=== PATIENT | female | born 1995 | race Caucasian/White ===

== ENCOUNTER 2023-11-05 11:16 | Outpatient (CLI) | payer OTHER, SELFPAY ==
--- NOTE | ~2023-11-05 | US_ITS ---
US breast LT limited 11/05/2023 11:41 Indication: Palpable left breast lump Procedure: High-resolution Limited ultrasound of the left breast Comparison: No prior studies for comparison. Findings: There is a cyst in the left breast at 3:00 near the nipple measuring 2.9 x 2.8 x 1.6 cm. Th ere is a soft tissue component along the anterior margin of the cyst with internal vascularity. This soft tissue component is not well delineated. No significant posterior features. Impression: 1: Irregular shaped vascular soft tissue along the anterior margin of the palpable cyst in the left b reast at 3:00 near the nipple. BI-RADS CATEGORY 4-SUSPICIOUS ABNORMALITY RECOMMENDATION: Ultrasound-guided biopsy of the soft tissue component recommended. Reviewed, dictated and finalized at location B. Impression: 1: Irregular shaped vascular soft tissue along the anterior margin of the palpa ble cyst in the left breast at 3:00 near the nipple. BI-RADS CATEGORY 4-SUSPICIOUS ABNORMALITY RECOMMENDATION: Ultrasound-guided biopsy of the soft tissue component recommend ed.
== END 2023-11-05 11:17 | disposition home or self-care (01) ==
PROVIDERS: Visit Provider Obstetrics & Gynecology
DX: N63.20 Unspecified lump in the left breast, unspecified quadrant (principal); R92.8 Other abnormal and inconclusive findings on diagnostic imaging of breast
CPT/HCPCS: 76642

== ENCOUNTER 2023-12-24 12:13 | Outpatient (CLI) | payer OTHER, SELFPAY ==
--- NOTE | ~2023-12-24 | MR_ITS ---
EXAMINATION: MR breast BI wo/w con INDICATION: Left breast lump TECHNIQUE: Axial VIBRANT pre and dynamic post contrast, Sagittal VIBRANT post contrast, Axial T2 STIR ASSET COMPARISON: Ultrasound dated 11/05/2023 CONTRAST: Multihance, 11 cc BREAST COMPOSITION: Extreme fibroglandular tissue FINDINGS: RIGHT BREAST: There is mild background parenchymal enhancement. No abnormal enhancement is present af ter contrast administration. No pathologically enlarged axillary or internal mammary lymph nodes are identified. LEFT BREAST: There is mild background parenchymal enhancement. There is a 2 cm nonenhancing cyst at t he central, slightly outer left breast, which correlates with the cyst seen on prior ultrasound. Harjit g the anterior margin of the cyst, there is an area of increased atypical enhancement, which also cor relates with the area of vascularity adjacent to the cyst seen on prior ultrasound. No pathologically enlarged axillary or internal mammary lymph nodes are identified. IMPRESSION: Findings which correlate with those seen on prior ultrasound. There is a 2 cm benign cyst at the chao tral to slightly outer left breast, an area of abnormal somewhat masslike enhancement along the anter ior margin of the cyst. This area of enhancement is indeterminate. As recommended on prior ultrasound report, biopsy of this region should be considered to establish a histologic diagnosis. BI-RADS category 4, suspicious findings. Reviewed, dictated and finalized at location M. IMPRESSION: Findings which correlate with those seen on prior ultrasound. There is a 2 cm benign cyst at the central to slightly outer left breast, an area of abnormal s omewhat masslike enhancement along the anterior margin of the cyst. This area o f enhancement is indeterminate. As recommended on prior ultrasound report, biop sy of this region should be considered to establish a histologic diagnosis. BI-RADS category 4, suspicious findings.
== END 2023-12-24 12:14 | disposition home or self-care (01) ==
LOC: ANHIMG 12:17
PROVIDERS: Visit Provider Surgery
DX: N63.25 Unspecified lump in the left breast, overlapping quadrants (principal); N60.02 Solitary cyst of left breast
CPT/HCPCS: 77049; A9577; C8908

== ENCOUNTER 2024-02-01 09:01 | Outpatient (CLI) | payer OTHER, SELFPAY ==
--- NOTE | ~2024-02-01 | US_ITS ---
EXAMINATION: US_BCALIMG_US DATE: 02/01/2024 18:46 CDT INDICATION: Painful left breast cyst TECHNIQUE: Survey imaging of the left breast was performed. The cyst at the 3:00 position was target ed for aspiration. The procedure and its risk and benefits were discussed with the patient. Risks in cluded but were not limited to pain, bleeding and infection. The patient verbalized understanding an d provided written consent. A time-out was performed to document the patient's name, date of , and site of procedure. The p eriareolar and medial quadrant of the patient's left breast was prepped and draped in usual sterile f ashion. 1% lidocaine was used for local anesthesia. Utilizing ultrasound guidance, a 20-gauge needl e was advanced into the well circumscribed anechoic avascular fluid collection with increased through transmission in the left breast. Aspiration was performed. Sample was sent for cytologic evaluation . Postaspiration images demonstrated the cyst to be completely decompressed. All devices were removed , and a sterile dressing applied. The patient tolerated procedure without immediate complication. FINDINGS: Technically successful aspiration of a (likely) cyst in the left breast at the 3:00 positio n. The fluid was thick, and light brown, and measured approximately 3-4 cc IMPRESSION: Technically successful aspiration of a fluid collection within the left breast, as detailed above. The patient will return on February 28 for ultrasound-guided percutaneous biopsy of the adjacent well -circumscribed solid focus within the left breast, adjacent to the cystic structure. Reviewed, dictated and finalized at location A. IMPRESSION: Technically successful aspiration of a fluid collection within the left breast, as detailed above. The patient will return on February 28 for ultrasound-guided percutaneous biops y of the adjacent well-circumscribed solid focus within the left breast, adjace nt to the cystic structure.
== END 2024-02-01 09:02 | disposition home or self-care (01) ==
PROVIDERS: Visit Provider Surgery
DX: N63.25 Unspecified lump in the left breast, overlapping quadrants (principal)
CPT/HCPCS: 19000; 76942; 87070; 87075; 87205

== ENCOUNTER 2024-02-29 09:07 | Outpatient (CLI) | payer OTHER, SELFPAY ==
--- NOTE | ~2024-02-29 | US_ITS ---
EXAMINATION: US breast biopsy LT w image DATE: 02/29/2024 11:02 INDICATION: Abnormal ultrasound and MRI in a 28-year-old woman. TECHNIQUE: The procedure including the risks, benefits, and alternatives was discussed with the patie nt. Risks discussed included bleeding, infection, and inadequate tissue sampling. The patient understood the risks and agreed to proceed. The skin overlying the left breast was prepped and draped in usual sterile fashion. Anesthetic was a dministered with 1% lidocaine subcutaneously. Limited ultrasound examination of the left breast was then again performed. At the 3:00 position of the left breast in the periareolar position is a mostly well-circumscribed fo cus of decreased echogenicity measuring 9.4 x 5.1 x 14.3 mm, suitable for biopsy. A 13G introducer was placed using ultrasound guidance into the abnormality at the 3:00 position of th e left breast, and the inner needle removed. A 14-gauge biopsy device was then used to obtain 2 biopsy specimens under continuous sonographic guid ance. The biopsy device was then removed, and through the introducer a butterfly marker was placed. The entry site was cleaned and dressed with Steri-Strips. There were no immediate complications. No post biopsy mammography was performed given patient's age and visualization with ultrasound. IMPRESSION: 1. Technically successful ultrasound-guided core needle biopsy of the sonographic and MRI abnormality at the 3:00 position of the left breast, as detailed above, with post biopsy marker placement. Pathology pending Reviewed, dictated and finalized at location A. 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 Technically successful ultrasound-guided core needle biopsy of the sonograph ic and MRI abnormality at the 3:00 position of the left breast, as detailed abo ve, with post biopsy marker placement. Pathology pending
== END 2024-02-29 09:08 | disposition home or self-care (01) ==
PROVIDERS: Visit Provider Surgery
DX: R92.1 Mammographic calcification found on diagnostic imaging of breast (principal); R92.30 Dense breasts, unspecified; N60.92 Unspecified benign mammary dysplasia of left breast; N63.25 Unspecified lump in the left breast, overlapping quadrants
CPT/HCPCS: 19083; 88305; A4648